=== PATIENT | female | born 1965 | race Two or more races ===

== ENCOUNTER 2024-07-12 16:52 | Emergency (ER) | payer MEDICAID, SELFPAY ==
[2024-07-12 17:12] VITALS: BP 168/83; PULSE 88; RESP 18; TEMP 36.9; O2SAT 98; BMI 34.7
--- NOTE | 2024-07-12 17:16 | XR_ITS ---
Examination: Foot, right, 3 views Technique: AP, oblique, lateral views foot, 3 views Date and time of exam: July 12, 2024 1721 hours INDICATIONS: Patient fell today with injury to foot, foot pain. FINDINGS: Moderate bunion deformity Acute fracture distal fibular shaft Bones of the foot appear intact IMPRESSION: Acute fracture distal fibular shaft
--- NOTE | 2024-07-12 17:16 | XR_ITS ---
EXAMINATION: Ankle, right 3 views . Technique: Ankle AP, oblique, lateral 3 views Date and time of exam: July 12, 2024 1721 hours INDICATIONS: Patient fell today with into the ankle, ankle pain. FINDINGS: Acute fractures distal fibular shaft without significant displacement Distal tibia intact with no ankle dislocation IMPRESSION: Acute fractures distal fibular shaft
--- NOTE | 2024-07-12 17:46 | PD.EDANKLE ---
Lower Extremity Injury RME/HPI General Chief Complaint: Ankle/Foot Injury Stated Complaint: TWISTED RIGHT ANKLE LAST WEDNESDAY- NOT BETTER Time Seen by Provider: 07/12/24 17:10 Arrival date/time: 07/12/24 16:52 59-year-old female presents to the emergency department today stating that she was dancing last Wednesday patient where she twisted her right ankle since then she been having pain and swelling Limitations: no limitations Related Data Home Medications ?Medication ?Instructions ?Recorded ?Confirmed aspirin 81 mg chewable tablet 81 mg PO DAILY 09/09/21 09/10/21 tizanidine 4 mg tablet 4 mg PO DAILY 09/09/21 09/10/21 valsartan 80 mg tablet 80 mg PO DAILY 09/09/21 09/10/21 Previous Rx's ?Medication ?Instructions ?Recorded hydrocodone 5 mg-acetaminophen 325 1 tab PO BID PRN pain #10 tabs 07/12/24 mg tablet ibuprofen 800 mg tablet 800 mg PO TID PRN pain #30 tabs 07/12/24 Allergies Allergy/AdvReac Type Severity Reaction Status Date / Time No Known Allergies Allergy Verified 07/12/24 16:53 Review of Systems Review of Systems Systems Reviewed: All systems reviewed, normal except as documented Constitutional Constitutional: Reports system reviewed and no additional complaints, except as documented, Denies fever(s) and Denies headache(s) Eyes Eyes: Reports system reviewed and no additional complaints, except as documented and Denies blurry vision ENT Ears, Nose, Mouth, and Throat: Reports system reviewed and no additional complaints, except as documented, Denies headache(s), Denies nasal congestion and Denies nasal discharge Cardiovascular Cardiovascular: Reports system reviewed and no additional complaints, except as documented, Denies chest pain and Denies dyspnea Respiratory Respiratory: Reports system reviewed and no additional complaints, except as documented, Denies chest congestion, Denies cough and Denies dyspnea Gastrointestinal Gastrointestinal: Reports system reviewed and no additional complaints, except as documented and Denies abdominal pain Musculoskeletal Musculoskeletal: Reports system reviewed and no additional complaints, except as documented, Reports abnormal gait, Reports arthralgias, Denies numbness, Reports stiffness and Denies tingling Integumentary/Breasts Skin/Breast: Reports system reviewed and no additional complaints, except as documented and Denies rash Neurologic Neurologic: Reports system reviewed and no additional complaints, except as documented, Reports as per HPI, Reports abnormal gait, Denies headache(s), Denies numbness and Denies tingling Past Medical History Past Medical History NEUROLOGIC: Negative Neurological Disorders CARDIAC: Negative Cardiac Disorders ED Exam General Limitations: Present no limitations General appearance: Present alert and in no apparent distress Head Head exam: Present atraumatic Eye Eye exam: Present normal appearance, PERRL and EOMI ENT ENT exam: Present normal exam, normal oropharynx and mucous membranes moist Neck Neck exam: Present normal inspection, full ROM and trachea midline Chest Chest inspection: Present normal inspection and symmetric chest wall rise Respiratory Respiratory exam: Present normal lung sounds bilaterally Cardiovascular Cardiovascular exam: Present regular rate, normal rhythm and normal heart sounds Abdominal Exam Abdominal exam: Present soft and normal bowel sounds Extremities Exam Extremities exam: Present full ROM, tenderness (Right ankle pain), normal capillary refill and joint swelling; Absent pedal edema or calf tenderness Back Exam Back exam: Present normal inspection and full ROM Neurological Exam Neurological exam: Present alert, oriented X3 and CN II-XII intact Psychiatric Psychiatric exam: Present normal affect and normal mood Skin Skin exam: Present warm, dry, intact and normal color Course Quality Measures none Orders Category Date Time Status Splint / Immobilizer STAT Care 07/12/24 17:46 Completed XR ankle comp RT min 3V Stat Exams 07/12/24 17:16 Completed XR foot comp RT min 3V Stat Exams 07/12/24 17:16 Completed HYDROcodone*/APAP 5/325 [[place] 5/325] Med 07/12/24 17:46 Discontinued 1 tab PO X1 ONE Vital Signs Vital signs: Vital Signs Temperature 98.5 F 07/12/24 17:12 Pulse Rate 88 07/12/24 17:12 Respiratory Rate 18 07/12/24 17:12 Blood Pressure 168/83 H 07/12/24 17:12 Pulse Oximetry (%) 98 07/12/24 17:12 Oxygen Delivery Method Room Air 07/12/24 17:12 O2 saturation 98% room air within normal limits Procedures -ED Splint Fabrication: Clinician Made Type: Posterior Leg Reason for Splint: Optimal Positioning Site condition: Intact Circulation Distal to Splint: Yes Movement Distal to Splint: Yes Senation Distal to Splint: Yes Tolerance: Tolerates Well Extremity Injury, Lower MDM Narrative MDM Narrative:: 59-year-old female presents to the emergency department today stating that she was dancing last Wednesday patient where she twisted her right ankle since then she been having pain and swelling X-ray of the right ankle obtained as well as right foot x-ray consistent with fracture distal fibula Patient placed in a posterior short leg splint and crutches Patient given [place] for pain Patient discharged home in no distress to follow-up with primary care doctor in the next 24 to 48 hours and for any worsening symptoms to return to the ER immediately Patient data External records reviewed:: [facility] previous records Clinical information provided by:: patient Social determinants that could affect healthcare access:: none Patient has the following chronic illnesses:: See history How is presenting disease/condition affected by chronic disease/condition?: uneffected by Evaluation data The following diagnostics were reviewed and interpreted by me:: radiology exam(s) Lab and/or radiology exams considered but not ordered:: Radiology obtained Interpretation Summary: Reviewed by me Medications / Prescriptions Medications or Prescriptions considered but not ordered:: Given Medication administrations:: Medication Administration History Discontinued Medications Hydrocodone Bitart/Acetaminophen (Hydrocodone/[place]ap 5/325 Tablet) 1 tab PO X1 ONE Stop: 07/12/24 17:47 Last Admin: 07/12/24 18:05 Dose: Not Given Documented By: OA Non-Admin Reason: Patient Refused Given Consultations Consultation(s) initiated? (list below): No Diagnosis Extremity Injury, Lower Differential Diagnosis: ankle sprain and strain and ankle fracture Most likely diagnosis given after review of the tests above:: Ankle fracture Admission Indicated Admission indicated?: not indicated Admission Request Was there a request for admission?: No Disposition Plan Disposition Plan: Discharge Discharge Attestation Discharge Attestation: The patient and all family members were given an opportunity to ask questions and understood the discharge instructions. Discharge instructions specifically effects, indications for sooner follow up or return to the emergency department, and the expected course of current diagnosis. Patient condition: Stable Discharge Plan Plan Patient Disposition: HOME (Self Care) Disposition Comment: Stable Prescriptions/Referrals Prescriptions/Med Rec: New ibuprofen 800 mg tablet 800 mg PO TID PRN (Reason: pain) Qty: 30 0RF hydrocodone-acetaminophen 5-325 mg tablet 1 tab PO BID MDD 10 PRN (Reason: pain) Qty: 10 0RF No Action tizanidine 4 mg tablet 4 mg PO DAILY Patient Comments: take 1 tablet by mouth at bedtime if needed valsartan 80 mg tablet 80 mg PO DAILY Patient Comments: take 1 tablet by mouth once daily aspirin 81 mg tablet,chewable 81 mg PO DAILY Patient Comments: chew and swallow 1 tablet by mouth once daily Referrals: Noelle Goldstein PA-C [Primary Care Provider] - In 1 week Problem List Clinical Impression: Fracture of ankle, right, closed Patient/Caregiver Discharge Instructions Education Materials: How Bones Heal Additional Instructions: Please follow up with your primary care doctor in the next 24-48hrs for any worsening symptoms return here immediately Print Language: Persian Stand Alone Forms: Anny Award Info., Patient Portal Info Letter PA/[employer]OD AND DR[employer] INSPECTOR Supervising Physician PA/CHUY Supervising Physician: Dr Garg
== END 2024-07-12 18:06 | disposition home or self-care (01) ==
PROVIDERS: Emergency Provider Emergency Medicine; PCP Physician Assistant
DX: S82.891A Other fracture of right lower leg, initial encounter for closed fracture (principal); X50.1XXA Overexertion from prolonged static or awkward postures, initial encounter; Y93.41 Activity, dancing
CPT/HCPCS: 29515; 73610; 73630; 99283

== ENCOUNTER → 2024-07-26 | Outpatient (CLI) | payer MEDICAID, SELFPAY ==
--- NOTE | 2024-07-26 | XR_ITS ---
EXAMINATION: Ankle, right 3 views . Technique: Ankle AP, oblique, lateral 3 views Date and time of exam: July 26, 2024 1214 hours INDICATIONS: Acute fracture lateral malleolus July 05, 2024 FINDINGS: Partial healing fracture distal fibular shaft with satisfactory alignment IMPRESSION: Partial healing fracture distal fibular shaft with stable and satisfactory alignment
== END | disposition home or self-care (01) ==
PROVIDERS: PCP Physician Assistant; Referring Provider Orthopaedic Surgery; Visit Provider Orthopaedic Surgery
DX: S82.491A Other fracture of shaft of right fibula, initial encounter for closed fracture (principal); X58.XXXA Exposure to other specified factors, initial encounter
CPT/HCPCS: 73610

== ENCOUNTER → 2024-08-17 | Outpatient (CLI) | payer MEDICAID, SELFPAY ==
--- NOTE | 2024-08-17 14:34 | XR_ITS ---
EXAMINATION: Ankle, right 3 views . Technique: Ankle AP, oblique, lateral 3 views Date and time of exam: August 17, 2023 1448 hours Comparison July 26, 2024 INDICATIONS: Acute fracture lateral malleolus August 04, 2024 FINDINGS: Significant healing fracture lateral malleolus with stable and satisfactory alignment IMPRESSION: Significant healing fracture lateral malleolus with stable and satisfactory alignment
== END | disposition home or self-care (01) ==
PROVIDERS: PCP Orthopaedic Surgery; Referring Provider Orthopaedic Surgery; Visit Provider Orthopaedic Surgery
DX: S82.61XD Displaced fracture of lateral malleolus of right fibula, subsequent encounter for closed fracture with routine healing (principal); X58.XXXD Exposure to other specified factors, subsequent encounter
CPT/HCPCS: 73610

== ENCOUNTER → 2024-09-21 | Outpatient (CLI) | payer MEDICAID, SELFPAY ==
--- NOTE | 2024-09-21 13:43 | XR_ITS ---
EXAMINATION: Ankle, right 3 views . Technique: Ankle AP, oblique, lateral 3 views Date and time of exam: September 21, 2024 1400 hours INDICATIONS: Right ankle fracture July 05, 2024. FINDINGS: Partial healing fracture distal fibular shaft with stable and satisfactory alignment IMPRESSION: Partial healing fracture distal fibular shaft with stable and satisfactory alignment
== END | disposition home or self-care (01) ==
LOC: CDIM 13:14
PROVIDERS: Referring Provider Orthopaedic Surgery; Visit Provider Orthopaedic Surgery
DX: S82.61XD Displaced fracture of lateral malleolus of right fibula, subsequent encounter for closed fracture with routine healing (principal); X58.XXXD Exposure to other specified factors, subsequent encounter
CPT/HCPCS: 73610

== ENCOUNTER → 2024-10-18 | Outpatient (CLI) | payer MEDICAID, SELFPAY ==
--- NOTE | 2024-10-18 15:32 | XR_ITS ---
EXAMINATION: Ankle, right 3 views . Technique: Ankle AP, oblique, lateral 3 views Date and time of exam: October 18, 2024 1534 hrs. Indications: Right ankle fracture July 2024 Findings: Partial healing fracture distal fibular shaft with stable and satisfactory alignment Impression: Partial knee fracture distal fibular shaft with stable and satisfactory alignment
== END | disposition home or self-care (01) ==
PROVIDERS: PCP Orthopaedic Surgery; Referring Provider Orthopaedic Surgery; Visit Provider Orthopaedic Surgery
DX: S82.61XD Displaced fracture of lateral malleolus of right fibula, subsequent encounter for closed fracture with routine healing (principal); X58.XXXD Exposure to other specified factors, subsequent encounter
CPT/HCPCS: 73610

== ENCOUNTER → 2025-01-29 | Outpatient (CLI) | payer MEDICAID, SELFPAY ==
--- NOTE | 2025-01-29 10:41 | XR_ITS ---
Examination: PA lateral chest 2 views TECHNIQUE: Upright PA lateral chest 2 views Date and time: January 29, 2025 1044 hours INDICATIONS: Shortness of breath beginning one month ago FINDINGS: Normal heart size No pneumonia or pulmonary edema Prominent thoracic dextroscoliosis IMPRESSION: No pneumonia or pulmonary edema
== END | disposition home or self-care (01) ==
LOC: CDIM 10:35
PROVIDERS: PCP Physician Assistant; Referring Provider Physician Assistant; Visit Provider Physician Assistant
DX: R06.02 Shortness of breath (principal); M41.84 Other forms of scoliosis, thoracic region
CPT/HCPCS: 71046

== ENCOUNTER → 2025-02-07 | Outpatient (CLI) | payer MEDICAID, SELFPAY ==
--- NOTE | 2025-02-07 15:41 | XR_ITS ---
EXAMINATION: Ankle, 3 views . Technique: Ankle AP, oblique, lateral 3 views Date and time of exam: February 07, 2025 1054 hours INDICATIONS: Ankle fracture July 2024. FINDINGS: Healed fracture distal fibular shaft with satisfactory alignment No occult dislocation IMPRESSION: Healed fracture distal fibular shaft with satisfactory
== END | disposition home or self-care (01) ==
LOC: CDIM 15:27
PROVIDERS: PCP Physician Assistant; Referring Provider Orthopaedic Surgery; Visit Provider Orthopaedic Surgery
DX: S82.61XD Displaced fracture of lateral malleolus of right fibula, subsequent encounter for closed fracture with routine healing (principal); X58.XXXD Exposure to other specified factors, subsequent encounter
CPT/HCPCS: 73610

== ENCOUNTER → 2025-04-30 | Outpatient (CLI) | payer MEDICAID, SELFPAY ==
--- NOTE | 2025-04-30 16:12 | XR_ITS ---
Examination: Knee, right , 3 views Technique: Knee AP, lateral, oblique 3 views Date and time of exam: April 30, 2025, 1636 hrs., Compared to December 19, 2021 Indications: Knee pain several years. Findings: Advanced tricompartment osteoarthritis, most severe medial joint space No fracture or dislocation Small to moderate knee effusion Impression: Advanced tricompartment osteoarthritis
== END | disposition home or self-care (01) ==
LOC: CDIM 16:04
PROVIDERS: Referring Provider Orthopaedic Surgery; Visit Provider Orthopaedic Surgery
DX: M17.11 Unilateral primary osteoarthritis, right knee (principal)
CPT/HCPCS: 73562

== ENCOUNTER 2025-05-17 11:01 | Outpatient (RCR) | payer MEDICAID, SELFPAY ==
--- NOTE | 2025-05-17 11:10 | PTNOTE_ITS ---
PT OP Initial Eval Patient Information Outpatient Physical Therapy Treatment Date: 05/17/25 Visit Reasons: RT ankle fracture Medical Diagnosis: S82.61XD Treatment Dx #1: R ankle weakness Start of Care: 05/17/25 Date of Onset: June 2024 Smoking Status Smoking Status: Never smoker Initial Assessment Subjective: Pt is 59 yr old female who fell dancing last June and fractured the lateral malleolus. It was casted and treated non-operatively. Now she can ambulate community distances without pain but it swells sometimes. She reports difficulty with stairs. PMH: HTN, Hip CHASTITY Sep 2019 Pt goal: to strengthen the ankle to do stairs Objective: R ankle AROM: DF: 12 deg ?Plantarflexion: full Inv: 25 deg Strength: Ankle DF 4/5 Heel raise B: full height without pain TTP: non-TTP lateral malleolus Sensation: intact to light touch of R foot Assessment: Pt presents with good strength and ROM of R ankle with heel raises but difficulty with stairs. Pt would benefit from skilled therapy to meet goals and has good rehab potential. Short Term and [employer] Goals 1. Ind with HEP 2. Ascend/descend stairs x1 flight with good balance Treatment Plan 1. Manual therapy ? 2. Therex ? 3. Modalities as indicated, moist heat, ice, TENS Frequency and Duration: 1-2x a week for 15 sessions plus the evaluation Certification Dates: 05/17/25 to 08/15/25 Procedure Charges OP PT Eval Mod Complex 30 minutes: Yes
== END 2025-06-08 23:59 | disposition home or self-care (01) ==
LOC: CPTX 11:01
PROVIDERS: PCP Orthopaedic Surgery; Referring Provider Orthopaedic Surgery; Visit Provider Orthopaedic Surgery
DX: R53.1 Weakness (principal); S82.61XD Displaced fracture of lateral malleolus of right fibula, subsequent encounter for closed fracture with routine healing; W19.XXXD Unspecified fall, subsequent encounter; I10 Essential (primary) hypertension
CPT/HCPCS: 97162

== ENCOUNTER → 2025-05-18 | Outpatient (CLI) | payer MEDICAID, SELFPAY ==
--- NOTE | 2025-05-18 | XR_ITS ---
Examination: Screening digital mammography, bilateral Computer aided detection 3-D breast Tomosynthesis, bilateral Date and time of exam: May 18, 2025, 0901 hours Compared to mammograms dating to November 29, 2015 Indication: Screening Technique: Nonmagnified MLO, CC views of the breasts to been obtained, reconstructed from 3-D Tomosynthesis images. R2 computer aided detection program utilized for evaluation of suspicious masses and/or abnormal calcifications. 3-D Tomosynthesis images obtained. Findings: The breasts are heterogeneously dense, which may obscure small masses Benign calcifications. 10 mm nodule indistinct margins upper outer right breast Impression: BI-RADS Category 0: Incomplete: Need additional imaging evaluation Recommend follow-up spot tomographic views of 10 mm nodule upper outer right breast as well as right breast sonography to complete the work-up
== END | disposition home or self-care (01) ==
LOC: CDIM 08:51
PROVIDERS: Referring Provider Physician Assistant; Visit Provider Physician Assistant
DX: Z12.31 Encounter for screening mammogram for malignant neoplasm of breast (principal); N63.11 Unspecified lump in the right breast, upper outer quadrant; R92.8 Other abnormal and inconclusive findings on diagnostic imaging of breast
CPT/HCPCS: 77063; 77067

== ENCOUNTER → 2025-07-13 | Outpatient (CLI) | payer MEDICAID, SELFPAY ==
--- NOTE | 2025-07-13 11:00 | XR_ITS ---
Examination: Breast ultrasound, unilateral, right Date and time of exam: July 13, 2025, 1105 hours INDICATIONS: Mammogram May 18, 2025 10 mm nodule indistinct margins upper outer right breast Technique: Real-time shfafer scale ultrasonographic imaging performed right breast including all 4 quadrants as well as nipple retroareolar and axillary region. Findings: No cystic or solid mass IMPRESSION: BI-RADS Category 1: Negative study
--- NOTE | 2025-07-13 11:30 | XR_ITS ---
Examination: Diagnostic digital mammography, unilateral, right Computer aided detection 3-D breast Tomosynthesis, unilateral Date and time of exam: July 13, 2025, 1116 hours INDICATIONS: Mammogram May 18, 2025 10 mm nodule upper outer right breast Technique: Nonmagnified MLO, CC views of the right breast have been obtained, reconstructed from 3-D Tomosynthesis images. R2 computer aided detection program utilized for evaluation of suspicious masses and/or abnormal calcifications. 3-D Tomosynthesis images obtained. Findings: The breast is heterogeneously dense, which may obscure small masses Focal asymmetry, nodular, 10 mm does persist on the spot compression MLO view Impression: BI-RADS category 3: Probably FINDINGS: 1. Additional 6-month right mammogram follow-up is needed to document stability of focal asymmetry upper right breast on the spot compression MLO view
== END | disposition home or self-care (01) ==
PROVIDERS: PCP Physician Assistant; Referring Provider Physician Assistant; Visit Provider Physician Assistant
DX: R92.8 Other abnormal and inconclusive findings on diagnostic imaging of breast (principal); N64.89 Other specified disorders of breast
CPT/HCPCS: 76641; 77061; 77065; G0279